=== PATIENT | male | born 1950 | race Caucasian/White ===

== ENCOUNTER 2021-04-13 03:59 | Inpatient (IN) | payer MEDICARE ==
[2021-04-13] MEDS ORDERED: ACETAMINOPHEN TAB 325 MG TAB PO PRN (04:28)
[2021-04-13] MEDS ORDERED: NALOXONE 0.4 MG/ML 1 ML VIAL IV PRN (04:28)
[2021-04-13] MEDS: SODIUM CHLORIDE 0.9% 1,000 ML IV SCH ×3 (04:53→16:33)
[2021-04-13 05:00] LABS: Basophils % (A) 0 %; Eosinophils % (A) 0 %; HCT 39.5 % (39.0-53.0); HGB 13.9 gm/dL (13.0-17.5); Lymphocytes # (A) 0.3 k/uL (1.0-4.8); Lymphocytes % (A) 10 %; MCH 35.7 pg (25.0-35.0); MCHC 35.1 g/dL (31.0-37.0); MCV 101.5 fL (80.0-100.0); Monocytes # (A) 0.2 k/uL (0-1.0); Monocytes % (A) 7 %; Neutrophils # (A) 2.1 k/uL (1.3-7.7); Neutrophils % (A) 81 %; Platelet Count 283 k/uL (150-450); RBC 3.89 m/uL (4.30-5.90); RDW 12.6 % (11.5-15.5); WBC 2.6 k/uL (3.8-10.6)
[2021-04-13 05:24] LABS: ALT 40 U/L (4-49); AST 60 U/L (17-59); African American GFR (CKD) >90 (>60 ml/min/1.73 sqM); Albumin 3.7 g/dL (3.5-5.0); Alkaline Phosphatase 57 U/L (38-126); Anion Gap 9 mmol/L; Blood Urea Nitrogen 12 mg/dL (9-20); Carbon Dioxide 21 mmol/L (22-30); Chloride 86 mmol/L (98-107); Creatinine,Urine Random 33.6 mg/dL; Glucose 136 mg/dL (74-99); Non-African American GFR(CKD) >90 (>60 ml/min/1.73 sqM); Total Bilirubin 0.7 mg/dL (0.2-1.3)
[2021-04-13 05:36] LABS: Sodium 116 mmol/L (137-145)
--- NOTE | 2021-04-13 07:20 | ED ---
SOB HPI - General Chief Complaint: Shortness of Breath Stated Complaint: Pneumonia Time Seen by Provider: 04/13/21 04:03 Source: patient Mode of arrival: EMS Limitations: no limitations - History of Present Illness Initial Comments: this patient is 70-year-old man transferred here from [facility]. patient has history of renal cell carcinoma. The patient had gone there to be evaluated for dyspnea on exertion that had been going on for approximately one week. MD Complaint: shortness of breath Onset/Timin -: week(s) Severity: moderate Consistency: constant Improves With: nothing Worsens With: exertion Known History Of: other (Renal cell CA) Context: occurred during exertion Associated Symptoms: denies other symptoms Treatments Prior to Arrival: other - Related Data Home Oxygen Therapy: No Home Medications Medication Instructions Recorded Confirmed Doxycycline Hyclate 100 mg PO BID 04/13/21 04/13/21 Famotidine [Pepcid] 20 mg PO DAILY 04/13/21 04/13/21 Mesalamine [Lialda] 2.4 gm PO BID@0800,1200 04/13/21 04/13/21 Multivitamins, Thera [Multivitamin 1 tab PO DAILY 04/13/21 04/13/21 (formulary)] Simponi 100mg/Ml Pen 100 mg SQ QMONTHLY 04/13/21 04/13/21 Sutent 50mg 50 mg PO DIRECTED 04/13/21 04/13/21 glipiZIDE XL [Glucotrol Xl] 10 mg PO BID@0800,1200 04/13/21 04/13/21 Allergies Allergy/AdvReac Type Severity Reaction Status Date / Time No Known Allergies Allergy Verified 04/13/21 06:15 Review of Systems ROS Statement: Those systems with pertinent positive or pertinent negative responses have been documented in the HPI. ROS Other: All systems not noted in ROS Statement are negative. Constitutional: Denies: fever, chills Respiratory: Reports: cough. Denies: wheezes, hemoptysis Cardiovascular: Reports: dyspnea on exertion, orthopnea. Denies: chest pain, palpitations, edema, syncope Gastrointestinal: Denies: abdominal pain, nausea, vomiting, diarrhea Genitourinary: Denies: dysuria, hematuria Musculoskeletal: Denies: back pain Skin: Denies: rash Neurological: Denies: headache, weakness, numbness Past Medical History Past Medical History: Heart Failure, Diabetes Mellitus, Hypertension Additional Past Medical History / Comment(s): ulcerative colitis, primary malignant neoplasm of right kidney, metastatic renal cell carcinoma History of Any Multi-Drug Resistant Organisms: None Reported Additional Past Surgical History / Comment(s): colonscopy, hernia repair Past Anesthesia/Blood Transfusion Reactions: No Reported Reaction Past Psychological History: No Psychological Hx Reported Smoking Status: Never smoker Past Alcohol Use History: None Reported Past Drug Use History: None Reported General Exam Limitations: no limitations General appearance: alert, in no apparent distress Head exam: Present: atraumatic, normocephalic Eye exam: Present: normal appearance. Absent: scleral icterus, conjunctival injection ENT exam: Present: normal oropharynx Neck exam: Present: normal inspection Respiratory exam: Present: rales. Absent: respiratory distress, wheezes, rhonchi, stridor Cardiovascular Exam: Present: regular rate, normal rhythm, normal heart sounds. Absent: systolic murmur, diastolic murmur, rubs, gallop GI/Abdominal exam: Present: soft. Absent: distended, tenderness, guarding, r ebound, rigid, mass Extremities exam: Present: normal inspection, normal capillary refill. Absent: calf tenderness Back exam: Present: normal inspection. Absent: CVA tenderness (R), CVA tenderness (L) Neurological exam: Present: alert Skin exam: Present: warm, dry, intact, normal color. Absent: rash Course Vital Signs 04/13/21 04/13/21 04/13/21 04:15 04:23 04:52 Temperature 97.9 F 97.7 F Pulse Rate 64 Pulse Rate [ 66 Pulse Oximetery ] Respiratory 16 16 18 Rate Blood Pressure 157/101 Blood Pressure 150/83 [Right Arm] O2 Sat by Pulse 94 L 95 Oximetry 04/13/21 04/13/21 04/13/21 05:00 05:08 06:08 Temperature Pulse Rate 62 66 Pulse Rate [ Pulse Oximetery ] Respiratory 18 19 Rate Blood Pressure 137/84 132/81 Blood Pressure [Right Arm] O2 Sat by Pulse 91 L 94 L 95 Oximetry Medical Decision Making - Lab Data Result diagrams: 04/13/21 04:35 04/13/21 04:35 Disposition Clinical Impression: Hyponatremia Disposition: ADMITTED IP TO THIS HOSP Condition: Fair
[2021-04-13 09:11] LABS: African American GFR (CKD) >90 (>60 ml/min/1.73 sqM); Anion Gap 8 mmol/L; Blood Urea Nitrogen 13 mg/dL (9-20); Carbon Dioxide 22 mmol/L (22-30); Chloride 87 mmol/L (98-107); Glucose 146 mg/dL (74-99); Non-African American GFR(CKD) 89 (>60 ml/min/1.73 sqM); Potassium 3.6 mmol/L (3.5-5.1)
[2021-04-13] MEDS: MULTIVITAMINS, THERA 1 EACH TAB PO SCH (09:22)
[2021-04-13] MEDS: FAMOTIDINE 20 MG TAB PO SCH (09:22)
[2021-04-13] MEDS: BALSALAZIDE DISODIUM 750 MG CAPSULE PO SCH ×3 (09:22→20:51)
[2021-04-13 09:24] LABS: Sodium 117 mmol/L (137-145)
--- NOTE | 2021-04-13 10:52 | P.HPIM ---
History of Present Illness H&P Date: 04/13/21 This is a 70-year-old male with complex past medical history noted below who presented to the emergency room as a transfer from outside hospital secondary to hyponatremia. Patient has a history of renal cell carcinoma status post right nephrectomy approximately 3 years ago currently metastatic on chemotherapy. Patient said that for the last week or so he has been having worsening shortness of breath and exertional dyspnea. He was seen and evaluated by his PCP and was given antibiotic that he is not sure what it is for possible underlying pneumonia. He then went to the ER at an outside hospital and had a computed tomography scan of the chest showing progressive disease with diffuse lympha denopathy in the chest. Also noted moderate pericardial effusion and bilateral pleural effusion. Patient was given antibiotic and discharged home but his symptoms did not improve and return to the ER yesterday and was found to have a sodium of 116 for that reason he was transferred to our hospital. Patient said that he is more short of breath with exertion. He denies fevers or chills. No cough. No chest pain. He is not aware of having any fluid around his heart or his lungs. Patient admits to poor by mouth intake in the last couple of weeks and believes that he is dehydrated. He denies alcohol use. Review of Systems Review of system: 14 points review of systems were obtained and were negative except to what were mentioned in the HPI. Past Medical History Past Medical History: Heart Failure, Diabetes Mellitus, Hypertension Additional Past Medical History / Comment(s): ulcerative colitis, primary malignant neoplasm of right kidney, metastatic renal cell carcinoma History of Any Multi-Drug Resistant Organisms: None Reported Additional Past Surgical History / Comment(s): colonscopy, hernia repair Past Anesthesia/Blood Transfusion Reactions: No Reported Reaction Past Psychological History: No Psychological Hx Reported Smoking Status: Never smoker Past Alcohol Use History: None Reported Past Drug Use History: None Reported - Past Family History Father Additional Family Medical History / Comment(s): renal cancer Medications and Allergies Home Medications Medication Instructions Recorded Confirmed Type Doxycycline Hyclate 100 mg PO BID 04/13/21 04/13/21 History Famotidine [Pepcid] 20 mg PO DAILY 04/13/21 04/13/21 History Mesalamine [Lialda] 2.4 gm PO BID@0800,1200 04/13/21 04/13/21 History Multivitamins, Thera [Multivitamin 1 tab PO DAILY 04/13/21 04/13/21 History (formulary)] Simponi 100mg/Ml Pen 100 mg SQ QMONTHLY 04/13/21 04/13/21 History Sutent 50mg 50 mg PO DIRECTED 04/13/21 04/13/21 History glipiZIDE XL [Glucotrol Xl] 10 mg PO BID@0800,1200 04/13/21 04/13/21 History Allergies Allergy/AdvReac Type Severity Reaction Status Date / Time No Known Allergies Allergy Verified 04/13/21 06:15 Physical Exam Vitals: Vital Signs Temp Pulse Pulse Resp BP BP Pulse Ox 04/13/21 08:32 98.4 F 56 L 16 146/79 94 L 04/13/21 06:08 66 19 132/81 95 04/13/21 05:08 94 L 04/13/21 05:00 62 18 137/84 91 L 04/13/21 04:52 97.7 F 66 18 150/83 95 04/13/21 04:23 16 04/13/21 04:15 97.9 F 64 16 157/101 94 L Intake and Output 04/12/21 04/13/21 04/13/21 22:59 06:59 14:59 Intake Total 240 Balance 240 Intake: Oral 240 Other: Voiding Method Toilet Weight 74.843 kg General: The patient is awake and alert, in no distress Eye: there is normal conjunctiva bilaterally. Neck: The neck is supple, there is no JVD. Cardiovascular: Normal S1-S2, no S3-S4, no murmurs. Respiratory: Lungs clear to auscultation bilaterally Gastrointestinal: Abdomen is soft, nontender Musculoskeletal: There is no pedal edema. Neurological:. Speech is normal. Skin: Skin is warm and dry Results CBC & Chem 7: 04/13/21 04:35 04/13/21 08:34 Labs: Abnormal Lab Results - Last 24 Hours (Table) 04/13/21 04/13/21 04/13/21 Range/Units 04:35 04:35 08:34 WBC 2.6 L (3.8-10.6) k/uL RBC 3.89 L (4.30-5.90) m/uL MCV 101.5 H (80.0-100.0) fL MCH 35.7 H (25.0-35.0) pg Lymphocytes # 0.3 L (1.0-4.8) k/uL Sodium 116 L* 117 L* (137-145) mmol/L Chloride 86 L 87 L (98-107) mmol/L Carbon Dioxide 21 L (22-30) mmol/L Glucose 136 H 146 H (74-99) mg/dL Osmolality 245 L* (280-301) mosm/kg AST 60 H (17-59) U/L Total Protein 6.0 L (6.3-8.2) g/dL Thrombosis Risk Factor Assmnt - Choose All That Apply Any of the Below Risk Factors Present?: No Each Risk Factor Represents 2 Points: Age 61-74 years Other congenital or acquired thrombophilia - If yes, enter type in comment: No Thrombosis Risk Factor Assessment Total Risk Factor Score: 2 Thrombosis Risk Factor Assessment Level: Low Risk Assessment and Plan Assessment: 1. Hyponatremia: Probably hypovolemic. Started on IV fluid hydration. I would monitor sodium level every 4 hours. Avoid overcorrection. Consult nephrology for further evaluation. 2. Progressive dyspnea, CT angiogram at outside hospital showed no evidence of PE. Patient has bilateral lung infiltrates and diffuse lymphadenopathy in the chest. We'll start antibiotic for pneumonia coverage and check pro-calcitonin. Also check BNP and echocardiogram. Repeat chest x-ray in the morning. 3. Moderate pericardial effusion noted on computed tomography scan, I would obtain echocardiogram for further evaluation 4. Bilateral pleural effusion, large 5. Metastatic renal cell carcinoma status post right nephrectomy currently on chemotherapy with Sutent, managed by outside oncologist 6. Underlying ulcerative colitis: Continue home dose of his anatomy 7. DVT prophylaxis with subcu Lovenox
[2021-04-13] MEDS: AZITHROMYCIN 500 MG TAB PO SCH (11:19)
--- NOTE | 2021-04-13 12:24 | XR ---
EXAMINATION TYPE: XR chest 2V DATE OF EXAM: 04/13/2021 COMPARISON: NONE HISTORY: Shortness of breath TECHNIQUE: Frontal and lateral views of the chest are obtained. FINDINGS: Scattered senescent parenchymal changes noted. Hyperinflation compatible with COPD. Patchy perihilar and basilar infiltrates are noted. Correlate for Covid 19 pneumonia. Small effusions may be present. Heart size is within normal limits. Mediastinal structures are stable and grossly unremarkable. No evidence for hilar prominence. Degenerative changes dorsal spine. IMPRESSION: 1. Patchy perihilar and basilar infiltrates are noted. Correlate for Covid 19 pneumonia. Small effusi ons may be present.
[2021-04-13 13:23] LABS: African American GFR (CKD) >90 (>60 ml/min/1.73 sqM); Anion Gap 10 mmol/L; Blood Urea Nitrogen 13 mg/dL (9-20); Calcium 9.2 mg/dL (8.4-10.2); Carbon Dioxide 22 mmol/L (22-30); Chloride 88 mmol/L (98-107); Glucose 87 mg/dL (74-99); Non-African American GFR(CKD) 89 (>60 ml/min/1.73 sqM); Potassium 3.7 mmol/L (3.5-5.1); Sodium 120 mmol/L (137-145)
[2021-04-13] MEDS: INSULIN ASPART (NovoLOG) 100 UNIT/ML VIAL SQ SCH ×3 (13:47→20:32)
[2021-04-13 14:22] LABS: INR 1.1 (<1.2); Prothrombin Time 11.8 sec (9.0-12.0)
--- NOTE | 2021-04-13 14:28 | US ---
EXAMINATION TYPE: US chest DATE OF EXAM: 04/13/2021 COMPARISON: CT from outside institution 04/04/2021 CLINICAL HISTORY: U/S to assess for fluid pocket please. Pleural effusions TECHNIQUE: Targeted ultrasound of the posterior lower bilateral hemithoraces EXAM MEASUREMENTS: Right Pleural Effusion pocket size: 14.3 Right skin surface to fluid distance: 2.2cm Left Pleural Effusion pocket size: 8.7m Left skin surface to fluid distance: 2.0m Right side marked for possible thoracentesis outside the dept. Left side marked for possible thoracentesis outside the dept. Pulmonologists are able to review the images in the patient?s EMR. IMPRESSIONS: Bilateral pleural effusions
--- NOTE | 2021-04-13 15:43 | XR ---
EXAMINATION TYPE: XR chest 1V portable DATE OF EXAM: 04/13/2021 HISTORY: Status post thoracentesis. COMPARISON: 04/13/2021 TECHNIQUE: Single view of the chest is submitted. FINDINGS: Demonstrated are scattered senescent parenchymal change. Patchy left perihilar and basilar infiltrates and small effusions persist. There is no evidence for p neumothorax. The heart is stable. Hilar and mediastinal structures are within normal limits. Degenerative changes are seen of the dorsal spine. IMPRESSION: 1. No evidence for pneumothorax.
--- NOTE | 2021-04-13 15:51 | US ---
EXAMINATION TYPE: US thoracentesis DATE OF EXAM: 04/13/2021 COMPARISON: NONE HISTORY: Right Pleural effusion. FINDINGS: Maximal barrier technique was utilized. The skin overlying a suitable pocket of fluid was localized and the overlying skin prepped and draped. Lidocaine was used for local anesthesia. Ultras ound was used with sterile technique. A 8 [place] catheter over a guide needle was advanced into the pleural fluid collection using ultrasound guidance and the catheter advanced, needle removed. Approx imately 1.6 liter(s) of yellow fluid was removed. Catheter was withdrawn and hemostasis achieved. T here is no immediate complication. The patient discharged in stable condition without complication. IMPRESSION: STATUS POST ULTRASOUND GUIDED THORACENTESIS, POST PROCEDURE CHEST X-RAY PENDING. THIS ME OCEDURE WAS PERFORMED BY THE UNDERSIGNED.
[2021-04-13 16:14] LABS: Glucose,Whole Blood 108 mg/dL (75-99)
--- NOTE | 2021-04-13 17:15 | CONS ---
CONSULTATION REASON FOR CONSULTATION: Hyponatremia. HISTORY OF PRESENT ILLNESS: The patient is a 70-year-old male who has a previous history of type 2 diabetes, hypertension, CHF. He was admitted to the hospital with increased weakness. He was also quite short of breath recently. The patient was found to have a serum sodium of 116. His blood pressure has not been significantly low, mostly 140s systolic. The patient has been started on IV fluids in the form of normal saline, currently running at about 130 mL/hour. Serum sodium improved to 117 early this morning and at noon it was up to 120. The patient has an underlying history of renal cell cancer, status post right nephrectomy about 3 years ago. Chest x-ray this admission shows patchy perihilar and basilar infiltrates with small effusions. No pulmonary vascular congestion was noted. The patient denies any swelling in his lower extremities. He denies using any new medications recently and patient was not maintained on thiazide diuretics prior to admission. He did admit that he has not been eating much for the past few weeks. Urine osmolality was 252. PAST MEDICAL HISTORY: Type 2 diabetes, hypertension, right renal cell cancer, status post right nephrectomy, CHF, history of ulcerative colitis. PAST SURGICAL HISTORY: Colonoscopy, hernia repair, right nephrectomy. SOCIAL HISTORY: Negative for smoking, drug abuse or alcohol abuse. MEDICATIONS: Medications prior to admission included doxycycline, Pepcid, Lialda, glipizide, insulin. ALLERGIES: NONE. REVIEW OF SYSTEMS: As per HPI. Other systems negative. PHYSICAL EXAMINATION: On examination, patient is comfortable, awake. He is not in any acute distress. Alert, oriented x3. Blood pressure 141/81, heart rate 68 per minute. He is afebrile. EXAMINATION OF THE HEART: S1 and S2. EXAMINATION OF LUNGS: Bilateral breath sounds are heard. There are decreased breath sounds, particularly on the right side. ABDOMEN: Soft, nontender. LOWER EXTREMITIES: Examination of lower extremities shows no evidence of edema. AUTOMATIC DEVELOPER EXAM: Grossly intact. LABS: Labs show sodium 120, potassium 3.7, chloride 88, BUN 13, creatinine 0.8, hemoglobin of 13.9 g/dL. Urine osmolality 252. Chest x-ray does not show any evidence of pulmonary vascular congestion. ASSESSMENT: 1. Hyponatremia; appears to be hypovolemic and improved with normal saline. The patient is complaining of shortness of breath. However, his chest x-ray does not show any evidence of fluid overload and clinical exam also does not reflect fluid overload. I will continue with the saline for now. Agree with decreasing the rate, and will repeat sodium again this evening. Check TSH and cortisol levels.CT at an outsude facility showed medistinal lymphadenopathy and bilateral pleural effusions and lung infiltrates per H and P 2. History of right nephrectomy for renal cell cancer 3 years ago. 3. Type 2 diabetes. 4. Dyspnea with no evidence of pulmonary embolism and no significant congestive heart failure noted; maintained on antibiotics. Patchy perihilar and basilar infiltrates were noted. Currently not requiring oxygen. Oxygen saturations 96% on room air. The patient apparently had a CT scan prior to his transfer to [facility] which showed moderate pericardial effusion. An echocardiogram has been ordered. The CT scan outside our facility prior to his transfer here did show evidence of progressive disease in the lungs with diffuse lymphadenopathy along with moderate pericardial effusion and bilateral pleural effusions. This is definitely contributing to his shortness of breath. 5. History of ulcerative colitis. 6. Renal cell cancer, status post right nephrectomy, with evidence of metastatic disease on the CT scan of the chest done in an outside facility. PLAN: Agree with decreasing fluids. Repeat sodium this evening. The patient is advised to restrict fluids and increase protein intake. Check TSH and cortisol level. Consider SIADH if sodium is not further improved with saline. Thank you for this consultation. Will continue to follow the patient with you during his hospitalization. SANDIL / MEDINAN: [id number] / JUDY
[2021-04-13 17:24] LABS: African American GFR (CKD) >90 (>60 ml/min/1.73 sqM); Anion Gap 8 mmol/L; Blood Urea Nitrogen 14 mg/dL (9-20); Carbon Dioxide 22 mmol/L (22-30); Chloride 90 mmol/L (98-107); Glucose 100 mg/dL (74-99); Non-African American GFR(CKD) 86 (>60 ml/min/1.73 sqM); Potassium 3.6 mmol/L (3.5-5.1); Sodium 120 mmol/L (137-145)
--- NOTE | 2021-04-13 18:18 | ECHOF ---
Referral Reason:Pericardial effusion/shortness of breath MEASUREMENTS -------- HEIGHT: 177.8 cm WEIGHT: 74.8 kg BP: 146/79 RVIDd: 3.4 cm (< 3.3) IVSd: 1.1 cm (0.6 - 1.1) LVIDd: 6.3 cm (3.9 - 5.3) LVPWd: 1.2 cm (0.6 - 1.1) IVSs: 1.9 cm LVIDs: 4.7 cm LVPWs: 1.5 cm LA Diam: 4.2 cm (2.7 - 3.8) LAESV Index (A-L): 33.68 ml/m Ao Diam: 4.1 cm (2.0 - 3.7) AV Cusp: 2.5 cm (1.5 - 2.6) MV EXCURSION: 22.451 mm (> 18.000) MV EF SLOPE: 32 mm/s (70 - 150) EPSS: 1.3 cm MV E Dread: 0.36 m/s MV DecT: 416 ms MV A Dread: 0.63 m/s MV E/A Ratio: 0.56 FINDINGS -------- Sinus rhythm. This was a technically adequate study. The left ventricle is mildly dilated. There is borderline concentric left ventricular hypertrophy. Overall left ventricular systolic function is mild-moderately impaired with, an EF between 40 - 45 %. The right ventricle is mildly enlarged. LA is midly dilated 29-33ml/m2. The right atrial size is normal. Interatrial and interventricular septum intact. The aortic valve is trileaflet, and appears structurally normal. No aortic stenosis or regurgitation. The mitral valve leaflets are mildly thickened. Mild mitral regurgitation is present. Mild prolap se of the posterior mitral valve leaflet. The tricuspid valve appears structurally normal. Mild tricuspid regurgitation present. Trace/mild (physiologic) pulmonic regurgitation. The aortic root is dilated measuring 4.1cm. Normal inferior vena cava with normal inspiratory collapse consistent with estimated right atrial pre ssure of 5 mmHg. There is no pericardial effusion. Pleural Effusion with Fibrin. CONCLUSIONS -------- 1. The left ventricle is mildly dilated. 2. There is borderline concentric left ventricular hypertrophy. 3. Overall left ventricular systolic function is mild-moderately impaired with, an EF between 40 - 45 %. 4. The right ventricle is mildly enlarged. 5. LA is midly dilated 29-33ml/m2. 6. The aortic valve is trileaflet, and appears structurally normal. No aortic stenosis or regurgitati on. 7. Mild mitral regurgitation is present. 8. Mild prolapse of the posterior mitral valve leaflet. 9. Mild tricuspid regurgitation present. 10. Trace/mild (physiologic) pulmonic regurgitation. 11. The aortic root is dilated measuring 4.1cm. 12. There is no pericardial effusion. 13. Pleural Effusion with Fibrin. ADMINISTRATIVE PROJECT COORDINATOR: Miriam Butts RDCS
[2021-04-13 19:35] LABS: Appearance,BF Clear; Color,BF Yellow; Nucleated Cells, Body Fluid 328 /uL; RBC, Body Fluid 98 /uL
[2021-04-13] MEDS ORDERED: SODIUM CHLORIDE TAB 1 GM TAB PO STA (19:36)
[2021-04-13 19:38] LABS: Mononuclear WBC,Body Fluid 100 %; Total Cells Counted,Body Fluid 100
[2021-04-13 20:03] LABS: Glucose,Whole Blood 119 mg/dL (75-99)
--- NOTE | 2021-04-13 20:45 | PN ---
PROGRESS NOTE ADDENDUM TO PROGRESS NOTE: Patient was seen this morning for hyponatremia. Serum sodium had improved with normal saline. Saline was decreased to 50 mL/hour. Repeat sodium stayed the same at 120. This was drawn at 5 p.m. I will give a dose of sodium chloride tablet 1 gram and then repeat labs again in a.m.. MMODL / MEDINAN: [id number] /
[2021-04-13 21:01] LABS: African American GFR (CKD) >90 (>60 ml/min/1.73 sqM); Anion Gap 7 mmol/L; Blood Urea Nitrogen 16 mg/dL (9-20); Calcium 9.1 mg/dL (8.4-10.2); Carbon Dioxide 24 mmol/L (22-30); Chloride 90 mmol/L (98-107); Glucose 114 mg/dL (74-99); Non-African American GFR(CKD) 87 (>60 ml/min/1.73 sqM); Potassium 3.7 mmol/L (3.5-5.1); Sodium 121 mmol/L (137-145)
[2021-04-14] MEDS: SODIUM CHLORIDE 0.9% 1,000 ML IV SCH ×2 (02:38→21:13)
[2021-04-14 06:09] LABS: Glucose,Whole Blood 118 mg/dL (75-99)
[2021-04-14] MEDS: INSULIN ASPART (NovoLOG) 100 UNIT/ML VIAL SQ SCH ×4 (06:10→21:06)
[2021-04-14 08:51] LABS: HCT 36.4 % (39.0-53.0); HGB 12.4 gm/dL (13.0-17.5); MCH 35.8 pg (25.0-35.0); MCHC 34.2 g/dL (31.0-37.0); MCV 104.6 fL (80.0-100.0); Macrocytosis Slight; Mean Platelet Volume 6.9; Platelet Count 223 k/uL (150-450); RBC 3.48 m/uL (4.30-5.90); RDW 13.1 % (11.5-15.5); WBC 3.9 k/uL (3.8-10.6)
[2021-04-14 09:16] LABS: African American GFR (CKD) >90 (>60 ml/min/1.73 sqM); Anion Gap 6 mmol/L; Blood Urea Nitrogen 14 mg/dL (9-20); Calcium 8.7 mg/dL (8.4-10.2); Carbon Dioxide 22 mmol/L (22-30); Chloride 94 mmol/L (98-107); Glucose 167 mg/dL (74-99); Non-African American GFR(CKD) 86 (>60 ml/min/1.73 sqM); Potassium 3.6 mmol/L (3.5-5.1); Sodium 122 mmol/L (137-145)
[2021-04-14] MEDS: BALSALAZIDE DISODIUM 750 MG CAPSULE PO SCH ×3 (09:51→20:20)
[2021-04-14] MEDS: MULTIVITAMINS, THERA 1 EACH TAB PO SCH (09:51)
[2021-04-14] MEDS: FAMOTIDINE 20 MG TAB PO SCH (09:51)
[2021-04-14] MEDS: AZITHROMYCIN 500 MG TAB PO SCH (09:51)
[2021-04-14] MEDS: ENOXAPARIN 40 MG/0.4 ML SYRINGE SQ SCH (09:52)
--- NOTE | 2021-04-14 11:49 | P.PN ---
Subjective Progress Note Date: 04/14/21 Principal diagnosis: This 70-year-old male seen in consultation because severe hyponatremia. Hyponatremia sodium to be from volume depletion from poor intake and excess free water fluid intake With IV normal saline sodium is improved. Further he had a 1.6 L tab done from left lung yesterday. He is feeling much better appetite is better. 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 Objective - Vital Signs Vital signs: Vital Signs Temp 98.3 F 04/14/21 03:51 Pulse 61 04/14/21 03:51 Resp 16 04/14/21 03:51 BP 117/69 04/14/21 03:51 Pulse Ox 92 L 04/14/21 03:51 Intake & Output 04/13/21 04/14/21 04/14/21 18:59 06:59 18:59 Intake Total 480 480 240 Balance 480 480 240 Weight 70 kg Intake: Oral 480 480 240 Other: Voiding Method Toilet Toilet # Voids 1 1 Examination is awake alert oriented comfortable HEENT exam no JVP neck is supple no facial asymmetry Lungs are clear to auscultation good air entry bilaterally Heart: Unremarkable for any murmur rub gallop Abdomen soft nontender Extremity exam was no edema Neurologically awake alert oriented - Labs CBC & Chem 7: 04/14/21 08:18 04/14/21 08:18 Labs: Abnormal Lab Results - Last 24 Hours (Table) 04/13/21 04/13/21 04/13/21 Range/Units 12:36 12:36 16:13 RBC (4.30-5.90) m/uL Hgb (13.0-17.5) gm/dL Hct (39.0-53.0) % MCV (80.0-100.0) fL MCH (25.0-35.0) pg Sodium 120 L (137-145) mmol/L Chloride 88 L (98-107) mmol/L Glucose (74-99) mg/dL POC Glucose (mg/dL) 108 H (75-99) mg/dL Procalcitonin 0.10 H (0.02-0.09) ng/mL 04/13/21 04/13/21 04/13/21 Range/Units 16:56 19:59 20:31 RBC (4.30-5.90) m/uL Hgb (13.0-17.5) gm/dL Hct (39.0-53.0) % MCV (80.0-100.0) fL MCH (25.0-35.0) pg Sodium 120 L 121 L (137-145) mmol/L Chloride 90 L 90 L (98-107) mmol/L Glucose 100 H 114 H (74-99) mg/dL POC Glucose (mg/dL) 119 H (75-99) mg/dL Procalcitonin (0.02-0.09) ng/mL 04/14/21 04/14/21 04/14/21 Range/Units 00:31 05:20 06:07 RBC (4.30-5.90) m/uL Hgb (13.0-17.5) gm/dL Hct (39.0-53.0) % MCV (80.0-100.0) fL MCH (25.0-35.0) pg Sodium 122 L 121 L (137-145) mmol/L Chloride (98-107) mmol/L Glucose (74-99) mg/dL POC Glucose (mg/dL) 118 H (75-99) mg/dL Procalcitonin (0.02-0.09) ng/mL 04/14/21 04/14/21 Range/Units 08:18 08:18 RBC 3.48 L (4.30-5.90) m/uL Hgb 12.4 L (13.0-17.5) gm/dL Hct 36.4 L (39.0-53.0) % MCV 104.6 H (80.0-100.0) fL MCH 35.8 H (25.0-35.0) pg Sodium 122 L (137-145) mmol/L Chloride 94 L (98-107) mmol/L Glucose 167 H (74-99) mg/dL POC Glucose (mg/dL) (75-99) mg/dL Procalcitonin (0.02-0.09) ng/mL Microbiology - Last 24 Hours (Table) 04/13/21 15:00 Gram Stain - Preliminary Pleural Fluid Body Fluid Culture - Preliminary 04/13/21 15:00 Anaerobic Culture - Preliminary Pleural Fluid Assessment and Plan Assessment: Impression 1. Hyponatremia secondary to volume depletion improved with IV fluids. Sodium improved to 122, appropriate rate from 116 yesterday 2. History of nephrectomy for renal cell CVA. 3. Status post thoracentesis 1.6 L from right yesterday. 4. Left pleural effusion. Recommendation 1. Continue IV fluids 2. Monitor labs, daily labs should suffice now
[2021-04-14 12:02] LABS: Glucose,Whole Blood 126 mg/dL (75-99)
--- NOTE | 2021-04-14 15:03 | P.CRDCN ---
History of Present Illness Consult date: 04/14/21 Consult reason: other (Third degree heart block) History of present illness: History of present illness: This is a 70-year-old male patient with past medical history of diabetes, hypertension, renal cancer status post right kidney and adrenal gland resection status post chemotherapy. Patient was recently treated for pneumonia on oral antibiotics by his PCP. Patient was seen in emergency center due to hypernatremia. CAT scan of the chest that showed diffuse lymphadenopathy, moderate pericardial effusion and bilateral pleural effusion. Patient apparently was discharged home and returned and found to have a sodium of 116 and transferred to [facility] Echocardiogram reveals EF of 40-45%, mild mitral regurgitation, mild prolapse of the posterior mitral valve leaflet, mild tricuspid regurgitation, no pericardial effusion Chest x-ray reveals patchy perihilar and basilar infiltrates. Correlate for Covid 19 pneumonia. Small effusions may be present. Chest ultrasound revealed 14.3 cm right pleural effusion pocket and 8.7 cm left pleural effusion pocket Patient underwent right-sided thoracentesis on 04/13 with removal of 1.6 L of yellow fluid. EKG in cardiac monitoring strips were reviewed and it appears the patient is in a second-degree block type II with occasional flareup of his bundle. He has been asymptomatic and is not on beta blockers. He states he had a similar episode with bradycardia and had to see a voip technician in [place] prior to having his nephrectomy. He has also had recent workup in [place] by voip technician for low heart rate. We will attempt to get records from the clear in [place]. Review Of Systems: Constitutional: No fever, no chills. No weakness, fatigue or lethargy. EENT: No headache. No dizziness. Lungs: Reports shortness of breath, cough, no sputum production. No wheezing. Cardiovascular: No chest pain, no lower extremity edema. No palpitations. No paroxysmal nocturnal dyspnea. No orthopnea. No lightheadedness or dizziness. No syncopal episodes. Abdominal: No abdominal pain. No nausea, vomiting. No diarrhea. No constipation. No bloody or tarry stools.. No loss of appetite. Genitourinary: No dysuria.. No urinary retention. Musculoskeletal: No myalgias. No muscle weakness, no gait dysfunction, no frequent falls. No back pain. No neck pain. Integumentary: No wounds, no lesions. No rash or pruritus. No unusual bruising. Neurologic: No aphasia. No facial droop. No change in mentation. No head injury. No headache. No paralysis. No paresthesia. Psychiatric: No depression. No anxiety. Endocrine: No abnormal blood sugars. Physical examination: Gen: This is a 70-year-old male. He is sitting up in a chair and appears to be comfortable and in no acute distress. VS: Afebrile, heart rate in the 60s, blood pressure 95/59, pulse ox 94% on room air. HEENT: Head is atraumatic, normocephalic. Pupils equal, round. Sclerae is anicte amy. NECK: Supple. No JVD. No lymphadenopathy. No thyromegaly. LUNGS: Clear to auscultation. No wheezes or rhonchi. No intercostal retractions. HEART: Regular rate and rhythm. No murmur. ABDOMEN: Soft. Bowel sounds are present. No masses. No tenderness. EXTREMITIES: No pedal edema. No calf tenderness. NEUROLOGICAL: Patient is awake, alert and oriented x3. Cranial nerves 2 through 12 are grossly intact. Assessment: Second-degree Type 2 block Hyponatremia Pneumonia Bilateral pleural effusion status post right-sided thoracentesis 04/13 Metastatic renal cell carcinoma status post right nephrectomy, currently in chemotherapy Ulcerative colitis Plan: Obtain records from [facility] regarding recent cardiac workup for bradycardia Further recommendations to follow based upon clinical course Thank you kindly for this consultation. Nurse practitioner note has been reviewed, I agree with documented findings and plan of care. Patient was seen and examined. Past Medical History Past Medical History: Heart Failure, Diabetes Mellitus, Hypertension Additional Past Medical History / Comment(s): ulcerative colitis, primary malignant neoplasm of right kidney, metastatic renal cell carcinoma History of Any Multi-Drug Resistant Organisms: None Reported Additional Past Surgical History / Comment(s): colonscopy, hernia repair Past Anesthesia/Blood Transfusion Reactions: No Reported Reaction Past Psychological History: No Psychological Hx Reported Smoking Status: Never smoker Past Alcohol Use History: None Reported Past Drug Use History: None Reported - Past Family History Father Additional Family Medical History / Comment(s): renal cancer Medications and Allergies Home Medications Medication Instructions Recorded Confirmed Type Doxycycline Hyclate 100 mg PO BID 04/13/21 04/13/21 History Famotidine [Pepcid] 20 mg PO DAILY 04/13/21 04/13/21 History Mesalamine [Lialda] 2.4 gm PO BID@0800,1200 04/13/21 04/13/21 History Multivitamins, Thera [Multivitamin 1 tab PO DAILY 04/13/21 04/13/21 History (formulary)] Simponi 100mg/Ml Pen 100 mg SQ QMONTHLY 04/13/21 04/13/21 History Sutent 50mg 50 mg PO DIRECTED 04/13/21 04/13/21 History glipiZIDE XL [Glucotrol Xl] 10 mg PO BID@0800,1200 04/13/21 04/13/21 History Allergies Allergy/AdvReac Type Severity Reaction Status Date / Time No Known Allergies Allergy Verified 04/13/21 06:15 Physical Exam Vitals: Vital Signs Temp Pulse Resp BP Pulse Ox 04/14/21 03:51 98.3 F 61 16 117/69 92 L 04/14/21 00:00 98 F 61 14 114/68 92 L 04/13/21 20:00 98.1 F 65 16 124/74 94 L 04/13/21 15:48 98.0 F 77 18 140/77 96 04/13/21 15:35 68 18 141/81 97 04/13/21 15:20 72 18 144/73 94 L 04/13/21 15:01 60 18 146/63 92 L Intake and Output 04/13/21 04/14/21 04/14/21 22:59 06:59 14:59 Intake Total 240 480 240 Balance 240 480 240 Intake: Oral 240 480 240 Other: Voiding Method Toilet Toilet # Voids 1 1 Weight 70 kg Results 04/14/21 08:18 04/14/21 08:18 Coagulation 04/13/21 Range/Units 13:33 PT 11.8 (9.0-12.0) sec CBC 04/14/21 Range/Units 08:18 WBC 3.9 (3.8-10.6) k/uL RBC 3.48 L (4.30-5.90) m/uL Hgb 12.4 L (13.0-17.5) gm/dL Hct 36.4 L (39.0-53.0) % Plt Count 223 (150-450) k/uL Comprehensive Metabolic Panel 04/13/21 04/13/21 04/13/21 Range/Units 12:36 16:56 20:31 Sodium 120 L 120 L 121 L (137-145) mmol/L Potassium 3.7 3.6 3.7 (3.5-5.1) mmol/L Chloride 88 L 90 L 90 L (98-107) mmol/L Carbon Dioxide 22 22 24 (22-30) mmol/L BUN 13 14 16 (9-20) mg/dL Creatinine 0.81 0.90 0.88 (0.66-1.25) mg/dL Glucose 87 100 H 114 H (74-99) mg/dL Calcium 9.2 9.0 9.1 (8.4-10.2) mg/dL 04/14/21 04/14/21 04/14/21 Range/Units 00:31 05:20 08:18 Sodium 122 L 121 L 122 L (137-145) mmol/L Potassium 3.6 (3.5-5.1) mmol/L Chloride 94 L (98-107) mmol/L Carbon Dioxide 22 (22-30) mmol/L BUN 14 (9-20) mg/dL Creatinine 0.89 (0.66-1.25) mg/dL Glucose 167 H (74-99) mg/dL Calcium 8.7 (8.4-10.2) mg/dL Current Medications Generic Name Dose Route Start Last Admin Trade Name Freq PRN Reason Stop Dose Admin Acetaminophen 650 mg 04/13/21 04:28 Acetaminophen Tab 325 Mg Tab PO Q6HR PRN Mild Pain or Fever > 100.5 Azithromycin 500 mg 04/13/21 10:45 04/14/21 09:51 Azithromycin 500 Mg Tab PO 500 mg DAILY LENY Administration Balsalazide 2,250 mg 04/13/21 09:00 04/14/21 09:51 Balsalazide Disodium 750 Mg Capsule PO 2,250 mg TID LENY Administration Enoxaparin Sodium 40 mg 04/14/21 09:00 04/14/21 09:52 Enoxaparin 40 Mg/0.4 Ml Syringe SQ 40 mg DAILY LENY Administration Famotidine 20 mg 04/13/21 09:00 04/14/21 09:51 Famotidine 20 Mg Tab PO 20 mg DAILY LENY Administration Ceftriaxone Sodium 2 gm/ 50 mls @ 100 mls/hr 04/13/21 10:45 04/14/21 09:51 Sodium Chloride IVPB 100 mls/hr Q24HR LENY Administration Sodium Chloride 1,000 mls @ 50 mls/hr 04/13/21 15:15 04/14/21 02:38 Saline 0.9% IV 50 mls/hr .Q20H LENY Administration Insulin Aspart 0 unit 04/13/21 12:30 04/14/21 06:10 Insulin Aspart (Novolog) 100 Unit/Ml Vial SQ Not Given ACHS LENY Protocol Multivitamins 1 each 04/13/21 09:00 04/14/21 09:51 Multivitamins, Thera 1 Each Tab PO 1 each DAILY LENY Administration Naloxone HCl 0.2 mg 04/13/21 04:28 Naloxone 0.4 Mg/Ml 1 Ml Vial IV Q2M PRN Opioid Reversal Intake and Output 04/13/21 04/14/21 04/14/21 22:59 06:59 14:59 Intake Total 240 480 240 Balance 240 480 240 Intake: Oral 240 480 240 Other: Voiding Method Toilet Toilet # Voids 1 1 Weight 70 kg 04/14/21 08:18 04/14/21 08:18
--- NOTE | 2021-04-14 15:23 | P.PN ---
Subjective Patient is feeling better today. He was up in the chair when I saw him. Shortness of breath improved significantly. Sodium level improved to 122 Objective - Vital Signs Vital signs: Vital Signs Temp 97.5 F L 04/14/21 12:00 Pulse 70 04/14/21 14:00 Resp 18 04/14/21 14:00 BP 95/59 04/14/21 12:00 Pulse Ox 94 L 04/14/21 12:00 Intake & Output 04/13/21 04/14/21 04/14/21 18:59 06:59 18:59 Intake Total 480 480 240 Balance 480 480 240 Weight 70 kg Intake: Oral 480 480 240 Other: Voiding Method Toilet Toilet Toilet # Voids 1 1 - Exam General: The patient is awake and alert, in no distress Eye: there is normal conjunctiva bilaterally. Neck: The neck is supple, there is no JVD. Cardiovascular: Normal S1-S2, no S3-S4, no murmurs. Respiratory: Lungs clear to auscultation bilaterally Gastrointestinal: Abdomen is soft, nontender Musculoskeletal: There is no pedal edema. Neurological:. Speech is normal. Skin: Skin is warm and dry - Labs CBC & Chem 7: 04/14/21 08:18 04/14/21 08:18 Labs: Abnormal Lab Results - Last 24 Hours (Table) 04/13/21 04/13/21 04/13/21 Range/Units 12:36 16:13 16:56 RBC (4.30-5.90) m/uL Hgb (13.0-17.5) gm/dL Hct (39.0-53.0) % MCV (80.0-100.0) fL MCH (25.0-35.0) pg Sodium 120 L (137-145) mmol/L Chloride 90 L (98-107) mmol/L Glucose 100 H (74-99) mg/dL POC Glucose (mg/dL) 108 H (75-99) mg/dL Procalcitonin 0.10 H (0.02-0.09) ng/mL 04/13/21 04/13/21 04/14/21 Range/Units 19:59 20:31 00:31 RBC (4.30-5.90) m/uL Hgb (13.0-17.5) gm/dL Hct (39.0-53.0) % MCV (80.0-100.0) fL MCH (25.0-35.0) pg Sodium 121 L 122 L (137-145) mmol/L Chloride 90 L (98-107) mmol/L Glucose 114 H (74-99) mg/dL POC Glucose (mg/dL) 119 H (75-99) mg/dL Procalcitonin (0.02-0.09) ng/mL 04/14/21 04/14/21 04/14/21 Range/Units 05:20 06:07 08:18 RBC 3.48 L (4.30-5.90) m/uL Hgb 12.4 L (13.0-17.5) gm/dL Hct 36.4 L (39.0-53.0) % MCV 104.6 H (80.0-100.0) fL MCH 35.8 H (25.0-35.0) pg Sodium 121 L (137-145) mmol/L Chloride (98-107) mmol/L Glucose (74-99) mg/dL POC Glucose (mg/dL) 118 H (75-99) mg/dL Procalcitonin (0.02-0.09) ng/mL 04/14/21 04/14/21 Range/Units 08:18 12:00 RBC (4.30-5.90) m/uL Hgb (13.0-17.5) gm/dL Hct (39.0-53.0) % MCV (80.0-100.0) fL MCH (25.0-35.0) pg Sodium 122 L (137-145) mmol/L Chloride 94 L (98-107) mmol/L Glucose 167 H (74-99) mg/dL POC Glucose (mg/dL) 126 H (75-99) mg/dL Procalcitonin (0.02-0.09) ng/mL Microbiology - Last 24 Hours (Table) 04/13/21 15:00 Gram Stain - Preliminary Pleural Fluid Body Fluid Culture - Preliminary 04/13/21 15:00 Anaerobic Culture - Preliminary Pleural Fluid Assessment and Plan Assessment: 1. Hyponatremia: Probably hypovolemic. Improving gradually. Nephrology consulted and following closely. Continue gentle IV fluid hydration 2. Progressive dyspnea: secondary to large bilateral pleural effusion. CT angiogram at outside hospital showed no evidence of PE. Patient has bilateral lung infiltrates and diffuse lymphadenopathy in the chest. We'll start antibiotic for pneumonia coverage. Pro-calcitonin slightly elevated. 3. Systolic heart failure with mild exacerbation, echocardiogram showed EF of 40-45%. I would discuss with nephrology restarting loop diuretics with caution secondary to hyponatremia 4. Reported Moderate pericardial effusion noted on computed tomography scan, ruled out with echocardiogram showed no pericardial effusion 5. Bilateral pleural effusion, large. Status post 1.6L thoracentesis from the right lung on 04/13. Anticipate left thoracentesis on Friday. Plan to follow up outpatient for cytology 6. Metastatic renal cell carcinoma status post right nephrectomy currently on c hemotherapy with Sutent, managed by outside oncologist 7. Underlying ulcerative colitis: Continue home dose of his anatomy 8. DVT prophylaxis with subcu Lovenox
[2021-04-14] MEDS ORDERED: MIDODRINE 5 MG TAB PO PRN (16:08)
[2021-04-14 17:05] LABS: Glucose,Whole Blood 112 mg/dL (75-99)
[2021-04-14 21:24] LABS: Glucose,Whole Blood 124 mg/dL (75-99)
[2021-04-15 06:13] LABS: Glucose,Whole Blood 132 mg/dL (75-99)
[2021-04-15] MEDS: INSULIN ASPART (NovoLOG) 100 UNIT/ML VIAL SQ SCH ×4 (06:14→21:00)
[2021-04-15] MEDS: MULTIVITAMINS, THERA 1 EACH TAB PO SCH (09:35)
[2021-04-15] MEDS: FAMOTIDINE 20 MG TAB PO SCH (09:35)
[2021-04-15] MEDS: BALSALAZIDE DISODIUM 750 MG CAPSULE PO SCH ×3 (09:35→23:40)
[2021-04-15] MEDS: AZITHROMYCIN 500 MG TAB PO SCH (09:35)
[2021-04-15] MEDS: ENOXAPARIN 40 MG/0.4 ML SYRINGE SQ SCH (09:35)
[2021-04-15 09:40] LABS: HCT 38.8 % (39.0-53.0); HGB 13.4 gm/dL (13.0-17.5); MCH 36.1 pg (25.0-35.0); MCHC 34.6 g/dL (31.0-37.0); MCV 104.3 fL (80.0-100.0); Macrocytosis Slight; Mean Platelet Volume 6.7; Platelet Count 317 k/uL (150-450); RBC 3.72 m/uL (4.30-5.90); RDW 13.8 % (11.5-15.5); WBC 5.5 k/uL (3.8-10.6)
--- NOTE | 2021-04-15 09:52 | P.PN ---
Subjective Progress Note Date: 04/15/21 Principal diagnosis: This 70-year-old male seen in consultation because severe hyponatremia. Hyponatremia from volume depletion from poor intake and excess free water fluid intake With IV normal saline sodium is improved. Further he had a 1.6 L tap done from left lung day before yesterday on 04/13/2021. He is feeling much better appetite is better. 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 Objective - Vital Signs Vital signs: Vital Signs Temp 98.2 F 04/15/21 03:49 Pulse 66 04/15/21 03:49 Resp 18 04/15/21 03:49 BP 126/71 04/15/21 03:49 Pulse Ox 92 L 04/15/21 03:49 Intake & Output 04/14/21 04/15/21 04/15/21 18:59 06:59 18:59 Intake Total 720 780 120 Balance 720 780 120 Weight 70.3 kg Intake: Oral 720 780 120 Other: Voiding Method Toilet Toilet # Voids 1 On exam he is awake alert oriented comfortable is walking around. He is on room air HEENT exam no JVP neck is supple no facial asymmetry Lungs are clear to auscultation good air entry bilaterally Heart sounds unremarkable for any murmur rub gallop Abdomen soft nontender Extremity exam was no edema Neurologically awake alert oriented comfortable - Labs CBC & Chem 7: 04/15/21 08:40 04/14/21 08:18 Labs: Abnormal Lab Results - Last 24 Hours (Table) 04/14/21 04/14/21 04/14/21 Range/Units 12:00 17:03 21:02 RBC (4.30-5.90) m/uL Hct (39.0-53.0) % MCV (80.0-100.0) fL MCH (25.0-35.0) pg POC Glucose (mg/dL) 126 H 112 H 124 H (75-99) mg/dL 04/15/21 04/15/21 Range/Units 05:54 08:40 RBC 3.72 L (4.30-5.90) m/uL Hct 38.8 L (39.0-53.0) % MCV 104.3 H (80.0-100.0) fL MCH 36.1 H (25.0-35.0) pg POC Glucose (mg/dL) 132 H (75-99) mg/dL Microbiology - Last 24 Hours (Table) 04/13/21 15:00 Gram Stain - Preliminary Pleural Fluid Body Fluid Culture - Preliminary Assessment and Plan Assessment: Impression 1. Hyponatremia secondary to volume depletion improved with IV fluids. Sodium improved to 122, appropriate rate from 116 last today are pending 2. History of nephrectomy for renal cell CVA. 3. Status post thoracentesis 1.6 L from right side on 04/13/2021 4. Left pleural effusion. Recommendation 1. Continue IV fluids 2. Monitor labs, daily labs
[2021-04-15 10:02] LABS: Calcium 9.2 mg/dL (8.4-10.2); Potassium 3.9 mmol/L (3.5-5.1)
[2021-04-15 11:53] LABS: Glucose,Whole Blood 140 mg/dL (75-99)
--- NOTE | 2021-04-15 13:22 | P.PN ---
Subjective Progress Note Date: 04/15/21 History of present illness: This is a 70-year-old male patient with past medical history of diabetes, hype rtension, renal cancer status post right kidney and adrenal gland resection status post chemotherapy. Patient was recently treated for pneumonia on oral antibiotics by his PCP. Patient was seen in emergency center due to hypernatremia. CAT scan of the chest that showed diffuse lymphadenopathy, mo derate pericardial effusion and bilateral pleural effusion. Patient apparently was discharged home and returned and found to have a sodium of 116 and transferred to [facility] Echocardiogram reveals EF of 40-45%, mild mitral regurgitation, mild prolapse of the posterior mitral valve leaflet, mild tricuspid regurgitation, no pericardial effusion Chest x-ray reveals patchy perihilar and basilar infiltrates. Correlate for Covid 19 pneumonia. Small effusions may be present. Chest ultrasound revealed 14.3 cm right pleural effusion pocket and 8.7 cm left pleural effusion pocket Patient underwent right-sided thoracentesis on 04/13 with removal of 1.6 L of yellow fluid. EKG in cardiac monitoring strips were reviewed and it appears the patient is in a second-degree block type II with occasional flareup of his bundle. He has been asymptomatic and is not on beta blockers. He states he had a similar episode with bradycardia and had to see a nurse case management in [place] prior to h aving his nephrectomy. He has also had recent workup in [place] by nurse case management for low heart rate. We will attempt to get records from the clear in [place]. 04/15: Patient is seen today for reevaluation. Monitor strips have been a high AV block running 30s to 40s during the night and currently in the 60s. Patient denies having any palpitations, chest pain or shortness of breath. Sodium is improving at 128, potassium 3.9, chloride 97. Hemoglobin is 13.4. Creatinine 1.09. Physical examination: Gen: This is a 70-year-old male. He is sitting up in a chair and appears to be comfortable and in no acute distress. VS: Afebrile, heart rate in the 60s, blood pressure and 148/71, pulse ox 94% on room air. HEENT: Head is atraumatic, normocephalic. Pupils equal, round. Sclerae is anicteric. NECK: Supple. No JVD. No lymphadenopathy. No thyromegaly. LUNGS: Clear to auscultation. No wheezes or rhonchi. No intercostal retractions. HEART: Regular rate and rhythm. No murmur. ABDOMEN: Soft. Bowel sounds are present. No masses. No tenderness. EXTREMITIES: No pedal edema. No calf tenderness. NEUROLOGICAL: Patient is awake, alert and oriented x3. Cranial nerves 2 through 12 are grossly intact. Assessment: High AV block Hyponatremia Pneumonia Bilateral pleural effusion status post right-sided thoracentesis 04/13 Metastatic renal cell carcinoma status post right nephrectomy, currently in chemotherapy Ulcerative colitis Plan: Obtain records from [facility] regarding recent cardiac workup for bradycardia Continue cardiac monitoring Avoid any medications that affect heart rate Further recommendations to follow based upon clinical course Thank you kindly for this consultation. Nurse practitioner note has been reviewed, I agree with documented findings and plan of care. Patient was seen and examined. Objective - Vital Signs Vital signs: Vital Signs Temp 98.2 F 04/15/21 03:49 Pulse 62 04/15/21 08:00 Resp 20 04/15/21 08:00 BP 148/71 04/15/21 08:00 Pulse Ox 94 L 04/15/21 08:00 Intake & Output 04/14/21 04/15/21 04/15/21 18:59 06:59 18:59 Intake Total 720 780 120 Balance 720 780 120 Weight 70.3 kg Intake: Oral 720 780 120 Other: Voiding Method Toilet Toilet Toilet # Voids 1 1 - Labs CBC & Chem 7: 04/15/21 08:40 04/15/21 08:40 Labs: Abnormal Lab Results - Last 24 Hours (Table) 04/14/21 04/14/21 04/14/21 Range/Units 12:00 17:03 21:02 RBC (4.30-5.90) m/uL Hct (39.0-53.0) % MCV (80.0-100.0) fL MCH (25.0-35.0) pg Sodium (137-145) mmol/L Chloride (98-107) mmol/L Glucose (74-99) mg/dL POC Glucose (mg/dL) 126 H 112 H 124 H (75-99) mg/dL 04/15/21 04/15/21 04/15/21 Range/Units 05:54 08:40 08:40 RBC 3.72 L (4.30-5.90) m/uL Hct 38.8 L (39.0-53.0) % MCV 104.3 H (80.0-100.0) fL MCH 36.1 H (25.0-35.0) pg Sodium 128 L (137-145) mmol/L Chloride 97 L (98-107) mmol/L Glucose 142 H (74-99) mg/dL POC Glucose (mg/dL) 132 H (75-99) mg/dL Microbiology - Last 24 Hours (Table) 04/13/21 15:00 Gram Stain - Preliminary Pleural Fluid Body Fluid Culture - Preliminary
--- NOTE | 2021-04-15 13:57 | P.PN ---
Subjective Patient is feeling well today. Sodium level improved to 128. Objective - Vital Signs Vital signs: Vital Signs Temp 98.2 F 04/15/21 03:49 Pulse 62 04/15/21 08:00 Resp 20 04/15/21 08:00 BP 148/71 04/15/21 08:00 Pulse Ox 94 L 04/15/21 08:00 Intake & Output 04/14/21 04/15/21 04/15/21 18:59 06:59 18:59 Intake Total 720 780 360 Balance 720 780 360 Weight 70.3 kg Intake: Oral 720 780 360 Other: Voiding Method Toilet Toilet Toilet # Voids 1 1 - Exam General: The patient is awake and alert, in no distress Eye: there is normal conjunctiva bilaterally. Neck: The neck is supple, there is no JVD. Cardiovascular: Normal S1-S2, no S3-S4, no murmurs. Respiratory: Lungs clear to auscultation bilaterally Gastrointestinal: Abdomen is soft, nontender Musculoskeletal: There is no pedal edema. Neurological:. Speech is normal. Skin: Skin is warm and dry - Labs CBC & Chem 7: 04/15/21 08:40 04/15/21 08:40 Labs: Abnormal Lab Results - Last 24 Hours (Table) 04/14/21 04/14/21 04/15/21 Range/Units 17:03 21:02 05:54 RBC (4.30-5.90) m/uL Hct (39.0-53.0) % MCV (80.0-100.0) fL MCH (25.0-35.0) pg Sodium (137-145) mmol/L Chloride (98-107) mmol/L Glucose (74-99) mg/dL POC Glucose (mg/dL) 112 H 124 H 132 H (75-99) mg/dL 04/15/21 04/15/21 04/15/21 Range/Units 08:40 08:40 11:52 RBC 3.72 L (4.30-5.90) m/uL Hct 38.8 L (39.0-53.0) % MCV 104.3 H (80.0-100.0) fL MCH 36.1 H (25.0-35.0) pg Sodium 128 L (137-145) mmol/L Chloride 97 L (98-107) mmol/L Glucose 142 H (74-99) mg/dL POC Glucose (mg/dL) 140 H (75-99) mg/dL Microbiology - Last 24 Hours (Table) 04/13/21 15:00 Gram Stain - Preliminary Pleural Fluid Body Fluid Culture - Preliminary Assessment and Plan Assessment: 1. Hyponatremia: Probably hypovolemic. Improving gradually. Nephrology consulted and following closely. Continue gentle IV fluid hydration 2. Progressive dyspnea: secondary to large bilateral pleural effusion. CT angiogram at outside hospital showed no evidence of PE. Patient has bilateral lung infiltrates and diffuse lymphadenopathy in the chest. We'll start antibiotic for pneumonia coverage. Pro-calcitonin slightly elevated. 3. Systolic heart failure with mild exacerbation, echocardiogram showed EF of 40-45%. I would discuss with nephrology restarting loop diuretics with caution secondary to hyponatremia 4. Reported Moderate pericardial effusion noted on computed tomography scan, ruled out with echocardiogram showed no pericardial effusion 5. Bilateral pleural effusion, large. Status post 1.6L thoracentesis from the right lung on 04/13. Anticipate left thoracentesis on Friday. Plan to follow up outpatient for cytology 6. Metastatic renal cell carcinoma status post right nephrectomy currently on chemotherapy with Sutent, managed by outside oncologist 7. Underlying ulcerative colitis: Continue home dose of his anatomy 8. DVT prophylaxis with subcu Lovenox
[2021-04-15 16:48] LABS: Glucose,Whole Blood 127 mg/dL (75-99)
[2021-04-15] MEDS: SODIUM CHLORIDE 0.9% 1,000 ML IV SCH (17:09)
[2021-04-15 20:51] LABS: Glucose,Whole Blood 159 mg/dL (75-99)
[2021-04-16 06:18] LABS: Glucose,Whole Blood 119 mg/dL (75-99)
[2021-04-16] MEDS: INSULIN ASPART (NovoLOG) 100 UNIT/ML VIAL SQ SCH ×2 (08:33→12:57)
[2021-04-16] MEDS: ENOXAPARIN 40 MG/0.4 ML SYRINGE SQ SCH (08:34)
[2021-04-16] MEDS: AZITHROMYCIN 500 MG TAB PO SCH (08:40)
[2021-04-16] MEDS: BALSALAZIDE DISODIUM 750 MG CAPSULE PO SCH ×2 (08:40→15:47)
[2021-04-16] MEDS: MULTIVITAMINS, THERA 1 EACH TAB PO SCH (08:41)
[2021-04-16] MEDS: FAMOTIDINE 20 MG TAB PO SCH (08:41)
[2021-04-16 09:23] LABS: Calcium 9.3 mg/dL (8.4-10.2); Potassium 3.9 mmol/L (3.5-5.1)
--- NOTE | 2021-04-16 09:35 | P.PN ---
Subjective Patient is seen in follow-up for hyponatremia. Sodium level continues to improve. Oral intake is good. No vomiting or diarrhea. Vital signs are stable. General: The patient appeared well nourished and normally developed. HEENT: Head exam is unremarkable. LUNGS: Breath sounds decreased. HEART: Rate and Rhythm are regular. ABDOMEN: Soft, no distention. EXTREMITITES: No edema. Objective - Vital Signs Vital signs: Vital Signs Temp 96.8 F L 04/16/21 04:00 Pulse 65 04/16/21 04:00 Resp 18 04/16/21 04:00 BP 129/77 04/16/21 04:00 Pulse Ox 91 L 04/16/21 04:00 Intake & Output 04/15/21 04/16/21 04/16/21 18:59 06:59 18:59 Intake Total 600 Balance 600 Weight 71 kg Intake: Oral 600 Other: Voiding Method Toilet Toilet # Voids 1 1 - Labs CBC & Chem 7: 04/15/21 08:40 04/16/21 07:59 Labs: Abnormal Lab Results - Last 24 Hours (Table) 04/15/21 04/15/21 04/15/21 Range/Units 08:40 08:40 11:52 RBC 3.72 L (4.30-5.90) m/uL Hct 38.8 L (39.0-53.0) % MCV 104.3 H (80.0-100.0) fL MCH 36.1 H (25.0-35.0) pg Sodium 128 L (137-145) mmol/L Chloride 97 L (98-107) mmol/L Glucose 142 H (74-99) mg/dL POC Glucose (mg/dL) 140 H (75-99) mg/dL 04/15/21 04/15/21 04/16/21 Range/Units 16:45 20:30 05:50 RBC (4.30-5.90) m/uL Hct (39.0-53.0) % MCV (80.0-100.0) fL MCH (25.0-35.0) pg Sodium (137-145) mmol/L Chloride (98-107) mmol/L Glucose (74-99) mg/dL POC Glucose (mg/dL) 127 H 159 H 119 H (75-99) mg/dL 04/16/21 Range/Units 07:59 RBC (4.30-5.90) m/uL Hct (39.0-53.0) % MCV (80.0-100.0) fL MCH (25.0-35.0) pg Sodium 131 L (137-145) mmol/L Chloride (98-107) mmol/L Glucose 134 H (74-99) mg/dL POC Glucose (mg/dL) (75-99) mg/dL Microbiology - Last 24 Hours (Table) 04/13/21 15:00 Anaerobic Culture - Preliminary Pleural Fluid 04/13/21 15:00 Gram Stain - Preliminary Pleural Fluid Body Fluid Culture - Preliminary Assessment and Plan Plan: Assessment: 1. Hypovolemic hyponatremia improved with IV hydration. Now euvolemic. Sodium level 131 this morning. Urine sodium 34 and urine osmolality 252. TSH and cortisol level normal. 2. Pleural effusions. Underwent left-sided thoracentesis with 1.6 L drained this admission. Right-sided thoracentesis pending. Plan: Hep-Lock IV fluids. Encourage oral intake.
[2021-04-16] MEDS ORDERED: LOSARTAN 25 MG TAB PO SCH (10:30)
--- NOTE | 2021-04-16 10:41 | P.PCN ---
Date of Procedure: 04/16/21 Preoperative Diagnosis: left pleural effusion Procedure(s) Performed: left thoracentesis Anesthesia: local Estimated Blood Loss (ml): 2 Pathology: other (700 cc serous fluid) Condition: stable Disposition: no change Operative Findings: u/s guide
[2021-04-16 11:03] VITALS: RESP 18
--- NOTE | 2021-04-16 11:17 | XR ---
EXAMINATION TYPE: XR chest 1V portable DATE OF EXAM: 04/16/2021 COMPARISON: Chest x-ray of 04/13/2021 HISTORY: Status post left thoracentesis TECHNIQUE: Single frontal view of the chest is obtained. FINDINGS: No evidence of pneumothorax. There is improved aeration in the left mariah-thorax. IMPRESSION: No evident complication status post thoracentesis.
--- NOTE | 2021-04-16 11:36 | P.PN ---
Subjective History of present illness: This is a 70-year-old male patient with past medical history of diabetes, hypertension, renal cancer status post right kidney and adrenal gland resection status post chemotherapy. Patient was recently treated for pneumonia on oral antibiotics by his PCP. Patient was seen in emergency center due to hypernatremia. CAT scan of the chest that showed diffuse lymphadenopathy, moderate pericardial effusion and bilateral pleural effusion. Patient apparently was discharged home and returned and found to have a sodium of 116 and transferred to [facility] Echocardiogram reveals EF of 40-45%, mild mitral regurgitation, mild prolapse of the posterior mitral valve leaflet, mild tricuspid regurgitation, no pericardial effusion Chest x-ray reveals patchy perihilar and basilar infiltrates. Correlate for Covid 19 pneumonia. Small effusions may be present. Chest ultrasound revealed 14.3 cm right pleural effusion pocket and 8.7 cm left pleural effusion pocket Patient underwent right-sided thoracentesis on 04/13 with removal of 1.6 L of yellow fluid. EKG in cardiac monitoring strips were reviewed and it appears the patient is in a second-degree block type II with occasional flareup of his bundle. He has been asymptomatic and is not on beta blockers. He states he had a similar episode with bradycardia and had to see a medical videographer in [place] prior to having his nephrectomy. He has also had recent workup in [place] by medical videographer for low heart rate. We will attempt to get records from the clear in [place]. 04/16/2021 Pt seen and examined sitting up on the couch in the room in no acute distress. He states he is uncomfortable from the bed. No chest pain, shortness of breath, dizziness or palpitations. Blood pressure 136/76 heart rate 59 afebrile and maintaining oxygen saturation on room air. Laboratory data reviewed, sodium 131, potassium 3.9, creatinine 1.02. He is scheduled to undergo thoracentesis and interventional radiology this morning. Physical examination: Gen: This is a 70-year-old male. He is sitting up in a chair and appears to be comfortable and in no acute distress. HEENT: Head is atraumatic, normocephalic. Pupils equal, round. Sclerae is anicteric. NECK: Supple. No JVD. No lymphadenopathy. No thyromegaly. LUNGS: Clear to auscultation. No wheezes or rhonchi. No intercostal retractions. HEART: Regular rate and rhythm. No murmur. EXTREMITIES: No pedal edema. No calf tenderness. Assessment: High AV block Hyponatremia Pneumonia Bilateral pleural effusion status post right-sided thoracentesis 04/13 Metastatic renal cell carcinoma status post right nephrectomy, currently in chemotherapy Ulcerative colitis Cardiomyopathy, unknown if ischemic or non-ischemic. Suspect likely non-ischemic as the patient states he has no CAD on recent cath. Plan: Add losartan 25 mg daily to his regimen secondary to cardiomyopathy. Avoid any rate lowering medications. Overall clinically stable from a cardiac perspective. Nurse practitioner note has been reviewed, I agree with documented findings and plan of care. Patient was seen and examined. Objective - Vital Signs Vital signs: Vital Signs Temp 96.8 F L 04/16/21 04:00 Pulse 59 L 04/16/21 11:17 Resp 18 04/16/21 11:17 BP 136/76 04/16/21 11:17 Pulse Ox 93 L 04/16/21 11:17 Intake & Output 04/15/21 04/16/21 04/16/21 18:59 06:59 18:59 Intake Total 600 0 Balance 600 0 Weight 71 kg Intake: Oral 600 0 Other: Voiding Method Toilet Toilet Toilet # Voids 1 1 - Labs CBC & Chem 7: 04/15/21 08:40 04/16/21 07:59 Labs: Abnormal Lab Results - Last 24 Hours (Table) 04/15/21 04/15/21 04/15/21 Range/Units 11:52 16:45 20:30 Sodium (137-145) mmol/L Glucose (74-99) mg/dL POC Glucose (mg/dL) 140 H 127 H 159 H (75-99) mg/dL 04/16/21 04/16/21 Range/Units 05:50 07:59 Sodium 131 L (137-145) mmol/L Glucose 134 H (74-99) mg/dL POC Glucose (mg/dL) 119 H (75-99) mg/dL Microbiology - Last 24 Hours (Table) 04/13/21 15:00 Anaerobic Culture - Preliminary Pleural Fluid 04/13/21 15:00 Gram Stain - Preliminary Pleural Fluid Body Fluid Culture - Preliminary
[2021-04-16 12:25] LABS: Glucose,Whole Blood 121 mg/dL (75-99)
--- NOTE | 2021-04-16 12:50 | P.DS ---
Providers Date of admission: 04/13/21 04:28 Expected date of discharge: 04/16/21 Attending physician: Nasreen Lopez MD Consults: 04/13/21 08:04 Consult Physician Routine Consulting Provider: Jaja Pool Consult Reason/Comments: hyponatremia Do you want consulting provider notified?: Yes 04/13/21 19:47 Consult Physician Routine Consulting Provider: Ck Garcia Consult Reason/Comments: possible third degree HB Do you want consulting provider notified?: Yes, Notify in am Primary care physician: DANA Cooper Hospital Course: This is a 70-year-old male with complex past medical history noted below that presented to the hospital with progressive dyspnea. Patient was evaluated in the ER and admitted to the hospital for further management of his medical prob lems noted below. 1. Hyponatremia: Probably hypovolemic. Improving gradually. Nephrology consulted and following closely. Sodium level on the day of discharge was 131 2. Progressive dyspnea: secondary to large bilateral pleural effusion. CT angiogram at outside hospital showed no evidence of PE. Patient has bilateral lung infiltrates and diffuse lymphadenopathy in the chest. Patient finished antibiotic course with ceftriaxone and azithromycin during this admission. Pro-calcitonin slightly elevated. 3. Systolic heart failure with mild exacerbation, echocardiogram showed EF of 40-45%. consider starting Lasix as an outpatient sodium level is stable 4. Reported Moderate pericardial effusion noted on computed tomography scan, ruled out with echocardiogram showed no pericardial effusion 5. Bilateral pleural effusion, large. Status post 1.6L thoracentesis from the right lung on 04/13. thoracentesis on the left on 04/16 with 750 mL of fluid removed. Chest x-ray stable. Plan to follow up outpatient for cytology 6. Metastatic renal cell carcinoma status post right nephrectomy currently on chemotherapy with Sutent, managed by outside oncologist 7. Underlying ulcerative colitis: Continue home dose of his anatomy Patient was seen and evaluated by me on the day of discharge. He is doing very well. He was advised to follow-up with his oncologist is regarding cytology results. physical exam: General: The patient is awake and alert, in no distress Eye: there is normal conjunctiva bilaterally. Neck: The neck is supple, there is no JVD. Cardiovascular: Normal S1-S2, no S3-S4, no murmurs. Respiratory: Lungs clear to auscultation bilaterally Gastrointestinal: Abdomen is soft, nontender Musculoskeletal: There is no pedal edema. Neurological:. Speech is normal. Skin: Skin is warm and dry Patient Condition at Discharge: Fair Plan - Discharge Summary Discharge Rx Participant: No New Discharge Prescriptions: New Losartan [Cozaar] 25 mg PO DAILY #30 tab Continue Mesalamine [Lialda] 2.4 gm PO BID@0800,1200 Simponi 100mg/Ml Pen 100 mg SQ QMONTHLY Famotidine [Pepcid] 20 mg PO DAILY glipiZIDE XL [Glucotrol XL] 10 mg PO BID@0800,1200 Multivitamins, Thera [Multivitamin (formulary)] 1 tab PO DAILY Sutent 50mg 50 mg PO DIRECTED Discontinued Doxycycline Hyclate 100 mg PO BID Discharge Medication List Famotidine [Pepcid] 20 mg PO DAILY 04/13/21 [History] Mesalamine [Lialda] 2.4 gm PO BID@0800,1200 04/13/21 [History] Multivitamins, Thera [Multivitamin (formulary)] 1 tab PO DAILY 04/13/21 [History] Simponi 100mg/Ml Pen 100 mg SQ QMONTHLY 04/13/21 [History] Sutent 50mg 50 mg PO DIRECTED 04/13/21 [History] glipiZIDE XL [Glucotrol XL] 10 mg PO BID@0800,1200 04/13/21 [History] Losartan [Cozaar] 25 mg PO DAILY #30 tab 04/16/21 [Rx] Follow up Appointment(s)/Referral(s): [facility] [NON-STAFF] - As Needed Arabella Dominguez NPC [Primary Care Provider] - 1 Week Discharge Disposition: HOME SELF-CARE
--- NOTE | 2021-04-16 13:04 | US ---
EXAMINATION TYPE: US thoracentesis DATE OF EXAM: 04/16/2021 COMPARISON: NONE HISTORY: Pleural effusion on the left. FINDINGS: Maximal barrier technique was utilized. The skin overlying a suitable pocket of fluid was localized and the overlying skin prepped and draped. Lidocaine was used for local anesthesia. Ultras ound was used with sterile technique. A 5 [place] catheter over guidewire needle was advanced into th e pleural fluid collection using ultrasound guidance and the catheter advanced, needle removed. Appr oximately 0.7 liter(s) of serous fluid was removed. Catheter was withdrawn and hemostasis achieved. There is no immediate complication. The patient discharged in stable condition without complication . IMPRESSION: STATUS POST ULTRASOUND GUIDED THORACENTESIS, POST PROCEDURE CHEST X-RAY PENDING. THIS LA OCEDURE WAS PERFORMED BY THE UNDERSIGNED. Assessment sent for laboratory analysis
[2021-04-16 15:28] VITALS: BP 134/83; PULSE 72; TEMP 98
[2021-04-17] MEDS ORDERED: CEFDINIR 300 MG CAP PO SCH (09:00)
== END 2021-04-16 16:24 | disposition home or self-care (01) | DRG 643 ==
LOC: EC 03:59 → 5NMEDONC 04:28 → 4SSUR 04:46 → 3SCARD 06:38
PROVIDERS: ADMIT Internal Medicine; ATTEND Internal Medicine
PROC: 0W9930Z Drainage of Right Pleural Cavity with Drainage Device, Percutaneous Approach (ICD-10-PCS; 2021-04-13)
PROC: 0W9B30Z Drainage of Left Pleural Cavity with Drainage Device, Percutaneous Approach (ICD-10-PCS; principal; 2021-04-16)
DX: E22.2 Syndrome of inappropriate secretion of antidiuretic hormone (principal); J18.9 Pneumonia, unspecified organism; I50.23 Acute on chronic systolic (congestive) heart failure; E87.0 Hyperosmolality and hypernatremia; J90 Pleural effusion, not elsewhere classified; C79.00 Secondary malignant neoplasm of unspecified kidney and renal pelvis; I50.22 Chronic systolic (congestive) heart failure; K51.90 Ulcerative colitis, unspecified, without complications; I31.3 Pericardial effusion (noninflammatory); I44.2 Atrioventricular block, complete; Z20.822 Contact with and (suspected) exposure to COVID-19; E11.9 Type 2 diabetes mellitus without complications; R06.09 Other forms of dyspnea; R59.1 Generalized enlarged lymph nodes; I11.0 Hypertensive heart disease with heart failure; E86.1 Hypovolemia; I08.1 Rheumatic disorders of both mitral and tricuspid valves; E86.0 Dehydration; Z79.84 Long term (current) use of oral hypoglycemic drugs; Z85.528 Personal history of other malignant neoplasm of kidney; Z86.73 Personal history of transient ischemic attack (TIA), and cerebral infarction without residual deficits; Z90.5 Acquired absence of kidney; Z92.21 Personal history of antineoplastic chemotherapy; Z79.899 Other long term (current) drug therapy; Z87.19 Personal history of other diseases of the digestive system
CPT/HCPCS: 32555; 71045; 71046; 76604; 80048; 80053; 82533; 82570; 83880; 83930; 83935; 84133; 84145; 84295; 84300; 84443; 85025; 85027; 85610; 87070; 87075; 87205; 87635; 89050; 93306; 99285